=== PATIENT | female | born 1950 | race Caucasian/White ===

== ENCOUNTER → 2022-02-25 | Outpatient (CLI) | payer MEDICARE, BC | END | disposition home or self-care (01) | LOC: RAH 09:40 | PROVIDERS: ATTEND Internal Medicine | DX: J84.10 Pulmonary fibrosis, unspecified (principal); R01.1 Cardiac murmur, unspecified; R91.8 Other nonspecific abnormal finding of lung field; K76.0 Fatty (change of) liver, not elsewhere classified; M47.815 Spondylosis without myelopathy or radiculopathy, thoracolumbar region; Z98.84 Bariatric surgery status | CPT/HCPCS: 71250 ==

== ENCOUNTER → 2022-03-14 | Outpatient (CLI) | payer MEDICARE | END | disposition home or self-care (01) | LOC: SHCH 11:37 → EDUNIT# 13:00 | PROVIDERS: ATTEND Internal Medicine | DX: I08.8 Other rheumatic multiple valve diseases (principal); I11.9 Hypertensive heart disease without heart failure | CPT/HCPCS: 93306 ==

== ENCOUNTER → 2022-09-13 | Outpatient (CLI) | payer MEDICARE | END | disposition home or self-care (01) | LOC: RAH 09:36 | PROVIDERS: ATTEND Surgery | DX: R10.9 Unspecified abdominal pain (principal); K44.9 Diaphragmatic hernia without obstruction or gangrene; N32.89 Other specified disorders of bladder; M47.815 Spondylosis without myelopathy or radiculopathy, thoracolumbar region; Z90.49 Acquired absence of other specified parts of digestive tract | CPT/HCPCS: 74176 ==

== ENCOUNTER → 2023-04-06 | Outpatient (CLI) | payer MEDICARE | END | disposition home or self-care (01) | LOC: RAH 14:57 | PROVIDERS: ATTEND Internal Medicine | DX: Z13.820 Encounter for screening for osteoporosis (principal); M81.8 Other osteoporosis without current pathological fracture | CPT/HCPCS: 77080 ==

== ENCOUNTER 2023-07-19 19:22 | Emergency (ER) | payer MEDICARE ==
[~2023-07-19] VITALS: Ht 172.7 cm; Wt 158.8 kg
[2023-07-19 21:18] LABS: BASOPHILS # (AUTO) 0.09 K/uL (0.00-0.20); BASOPHILS % (AUTO) 0.5 % (0.0-5.0); EOSINOPHILS # (AUTO) 0.11 K/uL (0.00-0.70); EOSINOPHILS % (AUTO) 0.6 % (0.0-8.0); HEMATOCRIT 35.4 % (36-48); LYMPHOCYTES # (AUTO) 0.7 K/uL (1.0-4.8); LYMPHOCYTES % (AUTO) 3.7 % (21.0-51.0); MEAN CORPUSCULAR HEMOGLOBIN 34.2 pg (27.0-33.0); MEAN CORPUSCULAR HGB CONC 33.1 g/dL (32.0-36.0); MEAN CORPUSCULAR VOLUME 103.5 fL (79-99); MONOCYTES # (AUTO) 0.9 K/uL (0.1-1.0); MONOCYTES % (AUTO) 4.9 % (3.0-13.0); NEUTROPHILS # (AUTO) 16.5 K/uL (1.8-7.7); NEUTROPHILS % (AUTO) 89.8 % (40.0-77.0); PLATELET COUNT (AUTO) 601 K/uL (130-400); RED BLOOD CELL COUNT(AUTO) 3.42 MIL/uL (4.00-5.50); RED CELL DISTRIBUTION WIDTH 15.3 % (11.0-15.5); WHITE BLOOD COUNT (AUTO) 18.3 K/uL (4.8-10.8)
[2023-07-19 21:37] LABS: ALBUMIN 3.2 g/dL (3.5-5.0); BILIRUBIN,TOTAL 1.6 mg/dL (0.2-1.0); CREATININE 1.3 mg/dL (0.5-1.5); TOTAL PROTEIN, SERUM 6.3 g/dL (6.0-8.3)
[2023-07-19] MEDS ORDERED: CEPH500T PO (23:49)
[2023-07-19 23:51] VITALS: BP 120/75; PULSE 74; RESP 18; O2SAT 97
== END 2023-07-19 23:58 | disposition home or self-care (01) ==
LOC: EDH 19:22
DX: L03.113 Cellulitis of right upper limb (principal); I10 Essential (primary) hypertension; M19.90 Unspecified osteoarthritis, unspecified site; Z88.0 Allergy status to penicillin
CPT/HCPCS: 36415; 80053; 83605; 85025; 87040

== ENCOUNTER → 2024-02-28 | Outpatient (CLI) | payer MEDICARE ==
[~2024-02-28] MED LIST: CEPH500T PO
== END | disposition home or self-care (01) ==
LOC: RAH 10:37
PROVIDERS: ATTEND Internal Medicine
DX: K76.0 Fatty (change of) liver, not elsewhere classified (principal); R10.31 Right lower quadrant pain; Z90.710 Acquired absence of both cervix and uterus; Z90.49 Acquired absence of other specified parts of digestive tract
CPT/HCPCS: 76700; 76856

== ENCOUNTER → 2024-03-29 | Outpatient (CLI) | payer MEDICARE | END | disposition home or self-care (01) | LOC: RAH 12:35 | PROVIDERS: ATTEND Internal Medicine | DX: Z13.6 Encounter for screening for cardiovascular disorders (principal) | CPT/HCPCS: 71250 ==

== ENCOUNTER → 2025-04-24 | Outpatient (CLI) | payer MEDICARE ==
--- NOTE | 2025-04-24 23:45 | HMCIMG ---
STUDY: CT CHEST WITHOUT IV CONTRAST CLINICAL HISTORY: Aneurysm of the ascending aorta, without rupture. TECHNIQUE: Axial non-contrast CT imaging of the chest. COMPARISON: None provided. FINDINGS: LUNGS COPD-related changes with peribronchial wall thickening and chronic bronchitis pattern. Peribronchial ground-glass haze and micronodules noted in the bilateral perihilar regions and bilateral lower lobes. No pulmonary mass. No lobar consolidation. PLEURAL SPACES No pleural effusion or pneumothorax. AIRWAYS Central airways are patent; mild bronchial wall thickening consistent with chronic bronchitis. HEART AND GREAT VESSELS Main pulmonary artery enlarged, measuring 4.1 cm???suggestive of pulmonary arterial hypertension correlation. Ascending aorta measures 4.3 cm, mildly dilated. Heart size within normal limits. No significant pericardial effusion. MEDIASTINUM AND LYMPH NODES No mediastinal, hilar, or axillary lymphadenopathy. CHEST WALL Unremarkable. UPPER ABDOMEN Postoperative gastric banding noted. Remaining visualized upper abdominal organs are unremarkable. BONES No acute osseous abnormality. IMPRESSION: * Mild ascending aortic dilatation measuring 4.3 cm. * Main pulmonary artery enlargement (4.1 cm); pattern may reflect pulmonary hypertension. * COPD with chronic bronchitis and peribronchial ground-glass haze with scattered micronodules in bilateral perihilar and lower lung zones. * Postoperative gastric banding. * Comparison: No prior imaging provided for interval assessment. * Radiologic???clinical correlation: Findings concordant with chronic airway disease and vascular enlargement; no acute pulmonary parenchymal process. /[place]
== END | disposition home or self-care (01) ==
LOC: RAH 09:51
PROVIDERS: ATTEND Internal Medicine
DX: J44.89 Other specified chronic obstructive pulmonary disease (principal); I71.21 Aneurysm of the ascending aorta, without rupture
CPT/HCPCS: 71250